=== PATIENT | female | born 1995 | race African-American/Black ===

== ENCOUNTER 2019-07-16 15:58 | Emergency (ER) | payer SELFPAY ==
[~2019-07-16] VITALS: Ht 157.5 cm; Wt 74.1 kg
[2019-07-16 16:26] LABS: COLLECTION METHOD CLEAN CATCH
[2019-07-16 16:37] LABS: AMORPHOUS CRYSTAL Present /uL; MUCOUS Present /lpf; PH 7 (5-8); SQUAMOUS EPITHELIAL None Seen /hpf; URINE APPEARANCE Cloudy; URINE BACTERIA Rare /hpf; URINE BILIRUBIN Negative (NEGATIVE); URINE BLOOD Negative (NEGATIVE); URINE COLOR Yellow; URINE GLUCOSE Negative (NEGATIVE); URINE KETONE Negative (NEGATIVE); URINE LEUKOCYTE ESTERASE Negative (NEGATIVE); URINE NITRATE Negative (NEGATIVE); URINE PROTEIN(semi-quant) Negative (NEGATIVE); URINE RBC 0-2 /hpf; URINE UROBILINOGEN Negative (NEGATIVE)
[2019-07-16 16:45] VITALS: BP 121/69; PULSE 79; TEMP 98.8
[2019-07-16] MEDS ORDERED: PRENATAL (16:50)
== END 2019-07-16 16:30 | disposition other institution (70) ==
LOC: COL.ER 15:58
PROVIDERS: Emergency Medicine
DX: O9A.213 Injury, poisoning and certain other consequences of external causes complicating pregnancy, third trimester (principal); M25.511 Pain in right shoulder; M54.5 Low back pain; R10.9 Unspecified abdominal pain; V43.52XA Car driver injured in collision with other type car in traffic accident, initial encounter; Z3A.29 29 weeks gestation of pregnancy

== ENCOUNTER 2019-07-16 16:46 | Outpatient (CLI) | payer SELFPAY ==
[~2019-07-16] VITALS: Ht 157.5 cm; Wt 73.6 kg
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
[2019-07-16] MEDS ORDERED: PRENATAL (16:50)
[2019-07-16 17:03] VITALS: BP 121/69; PULSE 79; TEMP 98.8
[2019-07-16 17:30] VITALS: BP 121/69; PULSE 79; TEMP 98.2
--- NOTE | 2019-07-16 18:34 | NUR ---
patient given discharge instructions. Reviewed kick counts and labor precautions. Encouraged to follow up as scheduled. Leaves ambulatory with spouse.
== END 2019-07-16 18:35 | disposition home or self-care (01) ==
LOC: LDRO 16:46 → LDR 16:46 → LDRO 18:31 → LDR 18:33 → LDRO 18:33 → LDR 18:35
DX: O9A.212 Injury, poisoning and certain other consequences of external causes complicating pregnancy, second trimester (principal); Z3A.26 26 weeks gestation of pregnancy

== ENCOUNTER 2019-09-30 02:06 | Inpatient (IN) | payer OTHER ==
[2019-09-30] VITALS (47 sets, daily range): BP systolic 96–147; BP diastolic 51–80; PULSE 73–114; TEMP 97.3–98.6
[~2019-09-30] VITALS: Ht 157.5 cm; Wt 89.5 kg
[~2019-09-30 02:06] MED LIST: PRENATAL
--- NOTE | 2019-09-30 02:50 | NUR ---
Pt arrived ambulatory on unit escorted by family and with complaints of contractions every 10 mins with some leaking of fluid since 2229 and reports normal movement. EFM and toco monitors started. Vital signs WNL. SVE by this RN with positive amnio-test. Information reviewed with Dr. Casillas. Labor admission orders received. Plan of care reviewed with pt and family at the bedside.
--- NOTE | 2019-09-30 03:30 | NUR ---
0330 INT STARTED IN LEFT HAND AND BLOOD DRAWN TO LAB. PERMITS SIGNED. WANTS TO GET IN HOT TUB AND ON BIRTHBALL 0340 UP TO BIRTHING BALL. UNABLE TO OBTAIN CONTINUOUS HEART RATE WHILE UP. PICKING UP PTS HEART RATE AT TIMES. 0350 RETURNED TO BED. FHT BASE 130
[2019-09-30 04:08] LABS: BASO % 0.2 % (0.0-2.0); EOS # 0.1 (0.0-0.7); EOS % 0.4 % (0-4.0); HEMATOCRIT 37.9 % (37.0-47.0); HEMOGLOBIN 12.7 g/dl (12.5-16.0); LYMPH # 2.8 (1.2-3.4); MEAN CELL VOLUME 92 fl (80.0-100.0); MEAN CORPUSCULAR HEMOGLOBIN 31 pg (27.0-31.0); MEAN CORPUSCULAR HGB CONC 34 g/dl (33.0-37.0); MEAN PLATELET VOLUME 11.1 fl (7.4-10.4); MONO # 0.8 (0.1-0.6); MONO % 6.7 % (1.7-9.3); PLATELET COUNT 213 K/mm3 (130-400); REDCELL DISTRIBUTION WIDTH-CV 13.4 % (11.5-14.5)
--- NOTE | 2019-09-30 04:30 | NUR ---
0430 UP TO HOT TUB.
--- NOTE | 2019-09-30 05:15 | NUR ---
0515 RETURNED TO BED FROM HOT TUB. BECOMING UNCOMFORTABLE. IV FLUIDS STARTED. TRYING TO REST.
--- NOTE | 2019-09-30 06:35 | NUR ---
0635-SVE /2, Repositoned WL, updated patient on plan of care. 0645-Difficulty maintaining continuous tracing, RN adjusts EFM. 0707-Dr. Arenas updated, see MD notification. 0710-Patient sitting upright in bed. Difficulty maintaining continous tracing of FHR, RN adjusts EFM. 0740-Dr. Arenas on unit, reviews FHR monitor. 0745-Patient in hands knees for cofort, difficulty maintaining continuos FHR tracing, patient experiencing dry heaves. SVE by this RN, unchanged from previous exam. 0755-Dr. Arenas to room and updates patient on plan of care, bedside sono by MD. 0803-patient off efm to bathroom. 0810-Patient to BB 0850-patient standing at bedside, difficulty tracing FHR due to maternal frequent repositioning. 0911-Patient off EFM to BR 0944-Patient to bed LL 1003-Patient off EFM to bathroom. 1015-MD to Patient room. No change in cervical exam. MD disucssed plan of care with patient. Orders to recheck in one hour. 1030-Patient to BB, difficulty tracing FHR due to maternal positioning
--- NOTE | 2019-09-30 11:07 | NUR ---
1107-SVE unchanged 2 reviewed plan of care. 1117-Pitocin started per MD orders at 2mu/min, see EMAR. 1125-Patient rolling in bed back and forth L to R for comfort, unable to maintain continuos tracing RN adjusting EFM 1131-Dr. Arenas updated, see MD notification. 1142-Patient in knee chest for comfort, difficulty maintaining continuous tracing, RN adjusts EFM. 1150-Patient LL 1200-Patient back Knee Chest, difficulty maintaining continuous tracing RN adjusts EFM frequently. 1205-Patient sitting upright, RN adjusting EFM. 1208-IV fentanyl given see EMAR per MD orders. 1228-Dr. Arenas on unit. Reviews strip. 1230-MD in to patient room to discuss plan of care. 1240-Patient on bedside commode 1258-Patient to bed LL
--- NOTE | 2019-09-30 13:03 | NUR ---
1303-SVE 5/-1, Updated MD see MD notification. Orders to give additional dose IV fentanyl 1311-Patient getting up to go to bathroom, Off EMAR. 1323-50mcg IV fenanyl given per MD order, see EMAR. Patient [id number] prolonged decels down to 90 BPM with slow return to baseline over 60 to 70 seconds. 1335-Dr. Arenas called unit and requests pitocin cut to 2mu/min. Reviewing FHR monitor in office. Pit adjusted at this time. 1408-CHAIM Boateng notified of patients request for epidural. 1430-Patient sitting up for epidural placement, difficulty keeping continuous tracing for epiduarl placement due to positioning. RN adjusts EFM. 1439-SS administered by CHAIM Boateng, patient tolerated well. See anesthesia flow record. 1445-Patient LL. 1450-Late decel in FHR down to 100BPM lasting 80 seconds, Difficulty keeping continuous tracing in FHR 1456-SVE 7/100/0, FSE placed, repositioned LL. 1459-FHR with deep Variable decel down to 70bpm, pitocin off, oxygen on via oxymask at 10l/min, IVF bolus. 1500-Dr. Arenas notified, see MD notification.
--- NOTE | 2019-09-30 15:10 | NUR ---
1510-Patient continues to have deep varaiables in FHR Repositoned RL. 1520-Maternal BP 102/54, 10MG ephedrine given per protocol and order see EMAR. 1525-Maternal BP 112/56. FHR 120bpm with out decels at this time. Moderate variability baseline 125-130bpm. 1535-Dr. Arenas on unit, reviews FHR monitor. SVE by /+2. Orders to recheck cervix at 1630. 1545-Patient flat for clark placement, this RN unable to complete clark placement. Repositoned WL. 1555-Clark to DD by WALT Mcmillan, clear yellow urine return. Miranda care provided. Repositioned WR with peanut ball.
--- NOTE | 2019-09-30 16:35 | NUR ---
1635-SVE 9/100/+2, Repositioned to [facility], FHR with Variable decels down to 90's bpm Baseline 115bpm. 1644-Dr. Arenas updated, see MD notification, pitocin started at 2mu/min per phone order. 1710-VHR decel down to 70's, RN to room, SVE anterior lip/100/+3, pitocin off, IVF bolus, oxygen on via oxymask at 10l/min. Dr. Meyer requested to unit. 1716-Dr. Arenas in room. Set up for delivery. 1720-SVE by 1721-Patient begins pushing with MD at bedside. Moves vertex well.
--- NOTE | 2019-09-30 17:24 | NUR ---
1724-Patient continues to push with MD at bedside. Moves vertex well. FSE removed by , RN resumes EFM FHR monitoring. 1727- head spontaneously delivered by Dr. Leija, patient contineus to push and body follows delivery of head within 20 seconds. Viable femal infant to mothers abdomen. Delayed cord clamping per patient request until cord stopped pulsating. Care of assumed by WALT Preciado apgars of . Cord clamped x2 and cut by FOB. 1733-Spontaneous delivery of intact placenta by MD. Fundal massage firm. Lochia WNL. EBL 200ml, Pitocin bolus per MD order and protocol. Left labial perineal lac repaired by MD. Miranda care provided, updated patient on safety and plan of care.
[2019-10-01] VITALS: BP 121/68; PULSE 107; TEMP 98.5
[2019-10-01 05:00] VITALS: BP 95/44; PULSE 81; TEMP 98.4
[2019-10-01 07:10] VITALS: BP 102/58; PULSE 89; TEMP 98
--- NOTE | 2019-10-01 09:15 | NUR ---
Initial visit attempt; Physician with patient. 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
--- NOTE | 2019-10-01 13:00 | NUR ---
K PAD GIVEN TO PATIENT PER REQUEST AT THIS TIME
[2019-10-01 20:00] VITALS: BP 122/63; PULSE 94; TEMP 98.1
[2019-10-02 08:17] VITALS: BP 116/66; PULSE 76; TEMP 97.8
[2019-10-02] MEDS ORDERED: IBU600 MG PO (10:27)
[2019-10-02 16:21] VITALS: BP 102/64; PULSE 76; TEMP 97.8
== END 2019-10-02 17:07 | disposition home or self-care (01) | DRG 807 ==
LOC: LDRO 02:06 → OB 02:55 → LDR 02:55 → OB 21:09
PROVIDERS: Obstetrics & Gynecology; ADMIT Obstetrics & Gynecology
PROC: 10E0XZZ Delivery of Products of Conception, External Approach (ICD-10-PCS; principal; 2019-09-30)
PROC: 0UQMXZZ Repair Vulva, External Approach (ICD-10-PCS; 2019-09-30)
DX: O76 Abnormality in fetal heart rate and rhythm complicating labor and delivery (principal); Z37.0 Single live birth; O99.52 Diseases of the respiratory system complicating childbirth; O99.284 Endocrine, nutritional and metabolic diseases complicating childbirth; O99.344 Other mental disorders complicating childbirth; O70.0 First degree perineal laceration during delivery; F32.9 Major depressive disorder, single episode, unspecified; J45.909 Unspecified asthma, uncomplicated; D21.9 Benign neoplasm of connective and other soft tissue, unspecified; Z3A.39 39 weeks gestation of pregnancy
CPT/HCPCS: J2590; J2795; J3010; J7120